=== PATIENT | male | born 1930 | race Caucasian/White ===

== ENCOUNTER 2016-11-07 07:12 | Emergency (ER) | payer MEDICARE, BC ==
--- NOTE | 2016-11-07 08:56 | EDM.PDOC ---
ED HPI GENERAL MEDICAL PROBLEM - General Chief Complaint: Gastrointestinal Problem Stated Complaint: CONSTIPATED Time Seen by Provider: 11/07/16 07:38 Source of Information: Reports: Patient, RN Notes Reviewed History Limitations: Reports: Physical Impairment (Very hard of hearing, no hearing aids) - History of Present Illness INITIAL COMMENTS - FREE TEXT/NARRATIVE: The patient states that he has been constipated for 22 days, although his last bowel movement was yesterday, after he took MiraLAX. He believes that his constipation is related to some of his medications, including his blood pressure medication and cholesterol medicine, therefore he discontinued taking them. He was prescribed Linzess (presumably for chronic idiopathic constipation ) on 10/17/2016, but states that he wants something stronger. No recent fever, nausea, vomiting, diarrhea, or problems urinating. Abdominal Pain Score (Numeric/FACES): 2 - Related Data Allergies Allergy/AdvReac Type Severity Reaction Status Date / Time No Known Allergies Allergy Verified 11/07/16 07:41 Home Meds: Home Meds Linaclotide [Linzess] 290 mcg PO DAILY 11/07/16 [History] Sertraline [Zoloft] 25 mg PO DAILY 11/07/16 [History] Past Medical History HEENT History: Reports: Impaired Vision Other HEENT History: wears eyeglasses. Cardiovascular History: Reports: High Cholesterol, Hypertension Gastrointestinal History: Reports: Chronic Constipation, Colon Polyp Genitourinary History: Reports: Prostate Disorder Musculoskeletal History: Reports: Arthritis Psychiatric History: Reports: Depression - Infectious Disease History Infectious Disease History: Reports: Chicken Pox, Shingles - Past Surgical History HEENT Surgical History: Reports: Tonsillectomy GI Surgical History: Reports: Colonoscopy, Hernia Repair/Other (x 3) Endocrine Surgical History: Reports: Thyroidectomy Social & Family History - Tobacco Use Smoking Status *Q: Never Smoker Second Hand Smoke Exposure: No - Caffeine Use Caffeine Use: Reports: None - Alcohol Use Alcohol Use History: Yes Alcohol Use Frequency: Rarely - Recreational Drug Use Recreational Drug Use: No - Living Situation & Occupation Living situation: Reports: Single, Alone Occupation: Retired ED ROS GENERAL - Review of Systems Review Of Systems: See Below Constitutional: Reports: No Symptoms HEENT: Reports: No Symptoms Respiratory: Reports: No Symptoms Cardiovascular: Reports: No Symptoms Endocrine: Reports: No Symptoms GI/Abdominal: Reports: Constipation : Reports: No Symptoms Musculoskeletal: Reports: No Symptoms Skin: Reports: No Symptoms Neurological: Reports: No Symptoms Psychiatric: Reports: No Symptoms Hematologic/Lymphatic: Reports: No Symptoms Immunologic: Reports: No Symptoms ED EXAM, GI/ABD - Physical Exam Exam: See Below Exam Limited By: No Limitations General Appearance: Alert, WD/WN, No Apparent Distress Eyes: Bilateral: Normal Appearance, EOMI Ears: Normal External Exam, Hearing Grossly Normal Nose: Normal Inspection, No Blood Throat/Mouth: Normal Inspection, Normal Lips, Normal Voice, No Airway Compromise Head: Atraumatic, Normocephalic Neck: Normal Inspection, Full Range of Motion Respiratory/Chest: No Respiratory Distress, Lungs Clear, Normal Breath Sounds, No Accessory Muscle Use Cardiovascular: Normal Peripheral Pulses, Regular Rate, Rhythm, No Gallop, No JVD, No Murmur, No Rub GI/Abdominal: Normal Bowel Sounds, Soft, Non-Tender, No Organomegaly, No Distention, No Abnormal Bruit, No Mass (Male) Exam: Deferred Back Exam: Normal Inspection, Full Range of Motion, NT Extremities: Normal Inspection, Normal Range of Motion, No Pedal Edema, Normal Capillary Refill Neurological: Alert, Oriented, No Motor/Sensory Deficits Psychiatric: Normal Affect Skin Exam: Warm, Dry, Intact, Normal Color, No Rash Lymphatic: No Adenopathy Course - Vital Signs Last Recorded V/S: Last Vital Signs Temp 36.4 C 11/07/16 07:25 Pulse 60 11/07/16 09:11 Resp 18 11/07/16 09:11 BP 133/89 11/07/16 09:11 Pulse Ox 95 11/07/16 09:11 - Radiology Interpretation Free Text/Narrative:: 2-view radiographs of the abdomen, upright, appears to demonstrate stool in the right colon, but otherwise nonspecific bowel gas pattern with no other significant stool seen. Formal read per the Radiologist pending. - Re-Assessments/Exams Free Text/Narrative Re-Assessment/Exam: 11/07/16 08:59 Communication with the patient was extremely difficult, as he is VERY hard of hearing and does not have hearing aids. Further, the patient has a number of fixed ideas, including that he does not need to take his blood pressure or prostate medicines, because supplements from a health food store are "just as good". He had difficulty understanding that his KUB did not demonstrate constipation. He was hoping that I could prescribe for him a stronger medicine than the Linzess, which I refused. I'm recommending that he follow his doctor's advice and take his medicines as prescribed. He states that he'll be following up with Dr. Cotton this coming Thursday. Departure - Departure Time of Disposition: 08:56 Disposition: Home, Self-Care 01 Condition: Good Clinical Impression: Constipation, chronic - Discharge Information Instructions: Constipation, Adult Referrals: Maryana Cotton MD [Primary Care Provider] - Forms: ED Department Discharge Additional Instructions: You were seen in the emergency room over a concern of being constipated. Workup in the ER included x-rays of your abdomen. The x-rays show that you have some stool at the beginning of your colon, but the remainder of your colon appears to be clean. You are not currently constipated. We recommend that you take all of your prescribed medicines. Stay adequately hydrated. If you develop constipation, occasional MiraLAX can be beneficial. Follow-up with your PCP, Dr. Maryana Cotton, at your previously scheduled appointment this coming 11/10/2016. If any other problems, please do not hesitate to return to the ER.
[2016-11-07 09:12] VITALS: BP 133/89
--- NOTE | 2016-11-07 10:38 | CR ---
Abdomen: Supine view of the abdomen was obtained. Comparison: Previous abdominal x-ray of 12/15/11. Bowel gas pattern appears normal. Mild vascular calcification is seen. Mild degenerative change is noted within the spine. Bony structures are osteopenic. Impression: 1. Incidental findings. Nothing acute is seen. Diagnostic code #2
== END 2016-11-07 09:15 | disposition home or self-care (01) ==
LOC: JD.ED 07:12
DX: K59.09 Other constipation (principal); I10 Essential (primary) hypertension; E78.00 Pure hypercholesterolemia, unspecified; F32.9 Major depressive disorder, single episode, unspecified; M19.90 Unspecified osteoarthritis, unspecified site; E89.0 Postprocedural hypothyroidism; Z98.890 Other specified postprocedural states; Z79.899 Other long term (current) drug therapy
CPT/HCPCS: 74000; 74000-26; 99282; 99284

== ENCOUNTER 2016-11-13 07:52 | Day surgery (SDC) | payer MEDICARE, BC ==
[~2016-11-13 07:52] MED LIST: Cefuroxime 10 MG/ML SYRINGE EYERT SCH; Lidocaine 1% PF 2 ML SDV INJECT SCH; Pilocarpine 4% Ophth Soln 15 ML Bot EYERT SCH
[2016-11-13] MEDS: Polymyxin B/Trimethoprim 10 ML Bottle EYERT SCH ×3 (09:32→11:14)
[2016-11-13] MEDS: Brimonidine 0.2% Ophth Soln 5 ML Bottle EYERT SCH ×3 (09:38→11:14)
[2016-11-13] MEDS: Phenylephrine 2.5% Ophth Soln 2 ML Bot EYERT SCH ×6 (09:46→10:58)
--- NOTE | 2016-11-13 09:47 | PCM.PREANE ---
Preanesthetic Assessment - Procedure Proposed Procedure: Right eye cataract extraction wiht IOL - Anesthesia/Transfusion/Family Hx Anesthesia History: Prior Anesthesia Without Reaction Family History of Anesthesia Reaction: No Transfusion History: No Prior Transfusion(s) Intubation History: Unknown - Review of Systems General: No Symptoms Pulmonary: No Symptoms Cardiovascular: Other (HTN controlled with medications ) Gastrointestinal: No symptoms Neurological: No Symptoms Other: Reports: Depression (controlled with medication ) - Physical Assessment NPO Status Date: 11/12/16 NPO Status Time: 21:00 Pulse: 57 O2 Sat by Pulse Oximetry: 97 Respiratory Rate: 16 Blood Pressure: 142/76 Temperature: 36.6 C Height: 1.8 m Weight: 83.915 kg ASA Class: 2 Mental Status: Alert & Oriented x3 Thyro-Mental Finger Breadths: 3 Mouth Opening Finger Breadths: 3 ROM/Head Extension: Full Lungs: Clear to auscultation, Normal respiratory effort Cardiovascular: Regular Rate, Regular Rhythm - Allergies Allergies/Adverse Reactions: Allergies Allergy/AdvReac Type Severity Reaction Status Date / Time No Known Allergies Allergy Verified 11/12/16 16:22 - Blood Blood Available: No Product(s) Available: None - Anesthesia Plan Pre-Op Medication Ordered: None - Acknowledgements Anesthesia Type Planned: MAC Pt an Appropriate Candidate for the Planned Anesthesia: Yes Alternatives and Risks of Anesthesia Discussed w Pt/Guardian: Yes Pt/Guardian Understands and Agrees with Anesthesia Plan: Yes PreAnesthesia Questionnaire HEENT History: Reports: Impaired Vision Other HEENT History: wears eyeglasses. Cardiovascular History: Reports: High Cholesterol, Hypertension Gastrointestinal History: Reports: Chronic Constipation, Colon Polyp Genitourinary History: Reports: Prostate Disorder Musculoskeletal History: Reports: Arthritis Psychiatric History: Reports: Depression Other Psychiatric History: states does not feel depressed but states "doctor thinks I am." - Infectious Disease History Infectious Disease History: Reports: Chicken Pox, Shingles - Past Surgical History HEENT Surgical History: Reports: Tonsillectomy GI Surgical History: Reports: Colonoscopy, Hernia Repair/Other (x 3) Endocrine Surgical History: Reports: Thyroidectomy - SUBSTANCE USE Smoking Status *Q: Never Smoker Second Hand Smoke Exposure: No Recreational Drug Use History: No - HOME MEDS Home Medications: Home Meds Linaclotide [Linzess] 290 mcg PO DAILY 11/07/16 [History] Sertraline [Zoloft] 25 mg PO DAILY 11/07/16 [History] - CURRENT (IN HOUSE) MEDS Current Meds: Current Medications Brimonidine Tartrate (Alphagan 0.2% Ophth Soln) 0 ml EYERT ASDIRECTED SVEN Stop: 11/13/16 18:00 Last Admin: 11/13/16 09:38 Dose: 1 drop Cefuroxime Sodium (Zinacef) 0 mg EYERT ASDIRECTED SVEN Stop: 11/13/16 18:00 Lidocaine HCl (Xylocaine-Mpf 1%) 10 ml INJECT ASDIRECTED SVEN Stop: 11/13/16 18:00 Phenylephrine HCl (Caleb-Synephrine 2.5% Ophth Soln) 0 ml EYERT ASDIRECTED SVEN Stop: 11/13/16 18:00 Pilocarpine HCl (Pilocar 4% Ophth Soln) 0 ml EYERT ASDIRECTED SVEN Stop: 11/13/16 18:00 Polymyxin/Trimethoprim Sulfate (Polytrim Ophth Soln) 0 ml EYERT ASDIRECTED SVEN Stop: 11/13/16 18:00 Last Admin: 11/13/16 09:32 Dose: 1 drop Tetracaine HCl (Tetracaine 0.5% Steri-Unit Cayla) 0 ml EYERT ASDIRECTED SVEN Stop: 11/13/16 18:00 Tropicamide (Mydriacyl 1% Ophth Soln) 0 ml EYERT ASDIRECTED SVEN Stop: 11/13/16 18:00
[2016-11-13] MEDS: Tetracaine HCl/PF 0.5% 4 ML Bottle EYERT SCH ×2 (10:47→13:50)
--- NOTE | 2016-11-13 11:18 | PCM48HPAN ---
Post Anesthesia Note - EVALUATION WITHIN 48HRS OF ANESTHETIC Vital Signs in Normal Range: Yes Patient Participated in Evaluation: Yes Respiratory Function Stable: Yes Airway Patent: Yes Cardiovascular Function Stable: Yes Hydration Status Stable: Yes Pain Control Satisfactory: Yes Nausea and Vomiting Control Satisfactory: Yes Mental Status Recovered: Yes
[2016-11-13 11:35] VITALS: BP 124/62
== END 2016-11-13 11:30 | disposition home or self-care (01) ==
LOC: JD.SDS 07:52
PROVIDERS: ATTEND Ophthalmology
PROC: 08RJ3JZ Replacement of Right Lens with Synthetic Substitute, Percutaneous Approach (ICD-10-PCS; principal; 2016-11-13)
DX: H25.811 Combined forms of age-related cataract, right eye (principal); H35.3131 Nonexudative age-related macular degeneration, bilateral, early dry stage; H16.223 Keratoconjunctivitis sicca, not specified as Sjogren's, bilateral; H16.103 Unspecified superficial keratitis, bilateral; H02.831 Dermatochalasis of right upper eyelid; H02.834 Dermatochalasis of left upper eyelid; I10 Essential (primary) hypertension; F32.9 Major depressive disorder, single episode, unspecified; M19.90 Unspecified osteoarthritis, unspecified site; Z86.010 Personal history of colon polyps; Z79.899 Other long term (current) drug therapy; Z98.890 Other specified postprocedural states
CPT/HCPCS: 66984; A9270; C1780; J0697

== ENCOUNTER 2016-12-09 07:01 | Day surgery (SDC) | payer MEDICARE, BC ==
[~2016-12-09 07:01] MED LIST changes: +Cefuroxime 10 MG/ML SYRINGE EYELF SCH; -Cefuroxime 10 MG/ML SYRINGE EYERT SCH; +Pilocarpine 4% Ophth Soln 15 ML Bot EYELF SCH; -Pilocarpine 4% Ophth Soln 15 ML Bot EYERT SCH
[2016-12-09] MEDS: Polymyxin B/Trimethoprim 10 ML Bottle EYELF SCH ×3 (07:14→08:52)
[2016-12-09] MEDS: Brimonidine 0.2% Ophth Soln 5 ML Bottle EYELF SCH ×3 (07:20→08:52)
--- NOTE | 2016-12-09 07:22 | PCM.PREANE ---
Preanesthetic Assessment - Anesthesia/Transfusion/Family Hx Anesthesia History: Prior Anesthesia Without Reaction Family History of Anesthesia Reaction: No Transfusion History: No Prior Transfusion(s) Intubation History: Unknown - Review of Systems General: No Symptoms Pulmonary: No Symptoms Cardiovascular: No Symptoms Gastrointestinal: No symptoms Neurological: No Symptoms Other: Reports: None - Physical Assessment NPO Status Date: 12/08/16 NPO Status Time: 20:00 Pulse: 53 O2 Sat by Pulse Oximetry: 95 Respiratory Rate: 16 Blood Pressure: 142/68 Temperature: 97.6 C Height: 1.8 m Weight: 83.915 kg ASA Class: 2 Mental Status: Alert & Oriented x3 Airway Class: Mallampati = 2 Dentition: Reports: Normal Dentition Thyro-Mental Finger Breadths: 3 Mouth Opening Finger Breadths: 3 ROM/Head Extension: Full Lungs: Clear to auscultation, Normal respiratory effort Cardiovascular: Regular Rate, Regular Rhythm - Allergies Allergies/Adverse Reactions: Allergies Allergy/AdvReac Type Severity Reaction Status Date / Time No Known Allergies Allergy Verified 12/08/16 16:06 - Acknowledgements Anesthesia Type Planned: MAC Pt an Appropriate Candidate for the Planned Anesthesia: Yes Alternatives and Risks of Anesthesia Discussed w Pt/Guardian: Yes Pt/Guardian Understands and Agrees with Anesthesia Plan: Yes PreAnesthesia Questionnaire HEENT History: Reports: Impaired Vision Other HEENT History: wears eyeglasses. Cardiovascular History: Reports: High Cholesterol, Hypertension Respiratory History: Reports: None Gastrointestinal History: Reports: Chronic Constipation, Colon Polyp Genitourinary History: Reports: Prostate Disorder Musculoskeletal History: Reports: Arthritis Neurological History: Reports: None Psychiatric History: Reports: Depression Other Psychiatric History: states does not feel depressed but states "doctor thinks I am." Endocrine/Metabolic History: Reports: None Hematologic History: Reports: None Immunologic History: Reports: None Oncologic (Cancer) History: Reports: None Dermatologic History: Reports: None - Infectious Disease History Infectious Disease History: Reports: Chicken Pox, Shingles - Past Surgical History Head Surgeries/Procedures: Reports: None HEENT Surgical History: Reports: Tonsillectomy Cardiovascular Surgical History: Reports: None Respiratory Surgical History: Reports: None GI Surgical History: Reports: Colonoscopy, Hernia Repair/Other (x 3) Female Surgical History: Reports: None Male Surgical History: Reports: None Endocrine Surgical History: Reports: Thyroidectomy Neurological Surgical History: Reports: None Musculoskeletal Surgical History: Reports: None Oncologic Surgical History: Reports: None Dermatological Surgical History: Reports: None - SUBSTANCE USE Smoking Status *Q: Never Smoker Second Hand Smoke Exposure: No Recreational Drug Use History: No - HOME MEDS Home Medications: Home Meds Sertraline [Zoloft] 25 mg PO DAILY 11/07/16 [History] - CURRENT (IN HOUSE) MEDS Current Meds: Current Medications Brimonidine Tartrate (Alphagan 0.2% Ophth Soln) 0 ml EYELF ASDIRECTED SVEN Stop: 12/09/16 16:00 Cefuroxime Sodium (Zinacef) 0 mg EYELF ASDIRECTED SVEN Stop: 12/09/16 18:00 Lidocaine HCl (Xylocaine-Mpf 1%) 10 ml INJECT ASDIRECTED SVEN Stop: 12/09/16 18:00 Phenylephrine HCl (Caleb-Synephrine 2.5% Ophth Soln) 0 ml EYELF ASDIRECTED SVEN Stop: 12/09/16 16:00 Pilocarpine HCl (Pilocar 4% Ophth Soln) 0 ml EYELF ASDIRECTED SVEN Stop: 12/09/16 16:00 Polymyxin/Trimethoprim Sulfate (Polytrim Ophth Soln) 0 ml EYELF ASDIRECTED SVEN Stop: 12/09/16 16:00 Last Admin: 12/09/16 07:14 Dose: 1 drop Tetracaine HCl (Tetracaine 0.5% Steri-Unit Cayla) 0 ml EYELF ASDIRECTED SVEN Stop: 12/09/16 16:00 Tropicamide (Mydriacyl 1% Ophth Soln) 0 ml EYELF ASDIRECTED SVEN Stop: 12/09/16 16:00
[2016-12-09] MEDS: Phenylephrine 2.5% Ophth Soln 2 ML Bot EYELF SCH ×5 (07:26→08:37)
[2016-12-09] MEDS: Tetracaine HCl/PF 0.5% 4 ML Bottle EYELF SCH ×2 (08:21→08:45)
[2016-12-09 09:11] VITALS: BP 126/60
== END 2016-12-09 09:00 | disposition home or self-care (01) ==
LOC: JD.SDS 07:01
PROVIDERS: ATTEND Ophthalmology
DX: H26.9 Unspecified cataract (principal); I10 Essential (primary) hypertension; Z79.899 Other long term (current) drug therapy; Z98.890 Other specified postprocedural states
CPT/HCPCS: 66984; C1780; J0697; A9270-GY

== ENCOUNTER 2017-03-03 06:16 | Day surgery (SDC) | payer MEDICARE, BC ==
[~2017-03-03 06:16] MED LIST changes: -Cefuroxime 10 MG/ML SYRINGE EYELF SCH; +Lactated Ringers 1,000 ML IV SCH; -Lidocaine 1% PF 2 ML SDV INJECT SCH; +Lidocaine 1%/Sod Bicarbonate in NS 8.4% 1 ML Syringe PRN; -Pilocarpine 4% Ophth Soln 15 ML Bot EYELF SCH; +Sodium Chloride 0.9% 10 ML Syringe FLUSH PRN
--- NOTE | 2017-03-03 07:18 | PCM.PREANE ---
Preanesthetic Assessment - Anesthesia/Transfusion/Family Hx Anesthesia History: Prior Anesthesia Without Reaction Family History of Anesthesia Reaction: No Transfusion History: No Prior Transfusion(s) Intubation History: Unknown - Review of Systems General: No Symptoms Pulmonary: No Symptoms Cardiovascular: No Symptoms Gastrointestinal: Abdominal Pain, Constipation, Hematochezia Neurological: No Symptoms Other: Reports: Depression, Anxiety - Physical Assessment NPO Status Date: 03/02/17 NPO Status Time: 19:00 O2 Sat by Pulse Oximetry: 97 Respiratory Rate: 18 Vital Signs: Last Vital Signs Temp 97.0 F 03/03/17 06:35 Pulse 62 03/03/17 06:35 Resp 18 03/03/17 06:35 BP 153/67 H 03/03/17 06:55 Pulse Ox 97 03/03/17 06:35 Height: 5 ft 7 in Weight: 88.904 kg ASA Class: 2 Mental Status: Alert & Oriented x3 Airway Class: Mallampati = 2 Dentition: Reports: Normal Dentition ROM/Head Extension: Limited/Partial Lungs: Clear to Auscultation, Normal Respiratory Effort Cardiovascular: Regular Rate, Irregular Rhythm - Allergies Allergies/Adverse Reactions: Allergies Allergy/AdvReac Type Severity Reaction Status Date / Time peanut Allergy Bronchospas Verified 03/02/17 13:08 ms - Blood Blood Available: No - Acknowledgements Anesthesia Type Planned: MAC Pt an Appropriate Candidate for the Planned Anesthesia: Yes Alternatives and Risks of Anesthesia Discussed w Pt/Guardian: Yes Pt/Guardian Understands and Agrees with Anesthesia Plan: Yes PreAnesthesia Questionnaire HEENT History: Reports: Hard of Hearing, Impaired Vision Other HEENT History: wears eyeglasses. 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 Musculoskeletal History: Reports: Arthritis Neurological History: Reports: None Psychiatric History: Reports: Depression Other Psychiatric History: states does not feel depressed but states "doctor thinks I am." Endocrine/Metabolic History: Reports: None Hematologic History: Reports: None Immunologic History: Reports: None Oncologic (Cancer) History: Reports: None Dermatologic History: Reports: None - Infectious Disease History Infectious Disease History: Reports: Chicken Pox, Shingles - Past Surgical History Head Surgeries/Procedures: Reports: None HEENT Surgical History: Reports: Cataract Surgery, Tonsillectomy Cardiovascular Surgical History: Reports: None Respiratory Surgical History: Reports: None GI Surgical History: Reports: Colonoscopy, Hernia Repair/Other Female Surgical History: Reports: None Male Surgical History: Reports: Other (See Below) Other Male Surgeries/Procedures: cystoscopy 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) Neurological Surgical History: Reports: None Musculoskeletal Surgical History: Reports: None Oncologic Surgical History: Reports: None Dermatological Surgical History: Reports: None - SUBSTANCE USE Smoking Status *Q: Never Smoker Second Hand Smoke Exposure: No Days Per Week of Alcohol Use: 0 Recreational Drug Use History: No - HOME MEDS Home Medications: Home Meds Betaine HCl [Betaine] 300 mg PO DAILY 03/02/17 [History] Boswellia Sharla Extract 1 gm MC ASDIRECTED 03/02/17 [History] Glutamine [l-Glutamine] 500 mg PO DAILY 03/02/17 [History] Lactobacillus Acidophilus [Probiotic] 1 cap PO DAILY 03/02/17 [History] Sennosides [Senokot] 2 tab PO DAILY 03/02/17 [History] Turmeric Root Extract [Turmeric] 500 mg PO DAILY 03/02/17 [History] Ubidecarenone [Coq10] 50 mg PO DAILY 03/02/17 [History] Vitamin B Complex/Folic Acid [Vitamin B-50 Complex] 1 tab PO DAILY 03/02/17 [ History] - CURRENT (IN HOUSE) MEDS Current Meds: Current Medications Lactated Ringer's (Ringers, Lactated) 1,000 mls @ 125 mls/hr IV ASDIRECTED SVEN Stop: 03/03/17 23:00 Lidocaine/Sodium Bicarbonate (Buffered Lidocaine 1% In Ns 8.4%) 0.25 ml .XX ONETIME PRN PRN Reason: Prior to IV Start Stop: 03/03/17 18:00 Sodium Chloride (Saline Flush) 10 ml FLUSH ASDIRECTED PRN PRN Reason: Keep Vein Open Stop: 03/03/17 18:00
[2017-03-03] MEDS ORDERED: Propofol 200 MG/20 ML SDV ONE (07:46)
[2017-03-03] MEDS ORDERED: Lidocaine 1% 4 ML ONE (07:46)
[2017-03-03] MEDS ORDERED: fentaNYL 100 MCG/2 ML SDV ONE (07:46)
--- NOTE | 2017-03-03 08:32 | PCM.OPNOTE ---
- General Post-Op/Procedure Note Date of Surgery/Procedure: 03/03/17 Operative Procedure(s): colonoscopy to cecum Pre Op Diagnosis: change in bowel habits Post-Op Diagnosis: Same Anesthesia Technique: MAC Primary Surgeon: Hai Lara EBL in mLs: 0 Complications: None Condition: Good
[2017-03-03 08:35] VITALS: BP 132/72
--- NOTE | 2017-03-03 14:16 | OR ---
DATE OF OPERATION: 03/03/2017 SURGEON: Hai Lara MD PREOPERATIVE DIAGNOSIS: Change in bowel habits. POSTOPERATIVE DIAGNOSIS: Change in bowel habits. OPERATION PERFORMED: Colonoscopy to cecum done under IV sedation. FINDINGS: A normal colon. There are mild internal hemorrhoids noted, but there are no angiodysplasia, neoplasias, large tumor masses, ulcerations, or diverticulum noted. DESCRIPTION OF PROCEDURE: The patient was taken to the endoscopy room, placed in a supine position, connected to monitoring equipment, given IV sedation, and placed in the left lateral position. Perianal area was inspected and was normal. Rectal exam showed good sphincter tone. A video Olympus colonoscope was then introduced into the rectum and threaded up without problem to the cecum where the ileocecal valve was noted along with the appendicular orifice. The prep was excellent. [place] cleansing score of grade A throughout the colon. The scope was slowly withdrawn, showing the cecum, ascending colon, transverse colon, descending colon, sigmoid colon, and rectum. Retroflexed view was done. The patient tolerated the procedure, sent to recovery room in a stable condition, to be followed up as needed by family doctor. ANESTHESIA: ESTIMATED BLOOD LOSS: MMODAL /[id number]
== END 2017-03-03 09:15 | disposition home or self-care (01) ==
LOC: JD.SDS 06:16
PROVIDERS: ATTEND Surgery
DX: K64.8 Other hemorrhoids (principal); K59.09 Other constipation; I10 Essential (primary) hypertension; E53.8 Deficiency of other specified B group vitamins; M17.11 Unilateral primary osteoarthritis, right knee; F41.9 Anxiety disorder, unspecified; F32.9 Major depressive disorder, single episode, unspecified; Z86.010 Personal history of colon polyps; Z98.890 Other specified postprocedural states; Z79.899 Other long term (current) drug therapy; Z91.010 Allergy to peanuts
CPT/HCPCS: 45378; J3010; J7120; 00810; J2704

== ENCOUNTER 2018-11-02 15:14 | Emergency (ER) | payer MEDICARE, BC ==
--- NOTE | 2018-11-02 17:22 | EDM.PDOC ---
ED HPI GENERAL MEDICAL PROBLEM - General Chief Complaint: Abdominal Pain Stated Complaint: CHEST OR CONSTIPATION Time Seen by Provider: 11/02/18 16:49 Source of Information: Reports: Patient, RN Notes Reviewed History Limitations: Reports: Physical Impairment (Very hard of hearing) - History of Present Illness INITIAL COMMENTS - FREE TEXT/NARRATIVE: Obtaining a history from the patient is very difficult, as the patient is not only very hard of hearing, but even when he does appear to hear questions posed to him, he seems to prefer to tell me his history of constipation, not answer the question asked. He clearly has several rigidly fixed opinions about medicine. He told me a story of someone he knew that had an upset stomach, who went to a chiropractor who asked if the patient had an upset stomach, explaining that he was able to determine that from examination of the patient's back, and that the upset stomach was relieved with repeated adjustments - the patient stated that this is proof that there is a nerve that runs down the spine and into the stomach and through the intestines, and that it is likely the pinching of this nerve that is causing his chronic constipation, if only someone could do something about it. The patient has a history of chronic constipation, status post numerous evaluations, including at [facility]. He stated that the doctors at [facility] give him some pills and charged him a lot of money. He states that the pills actually worked after about 2-3 weeks, but when they ran out, he did not get any refills. He states that he saw Dr. Taveras, who performed a number of colonoscopies and charged him a lot of money, and he saw Dr. Lara, who talked to him a lot, and charged him a lot of money. I asked the patient if he has discussed his constipation issues with his PCP, however, the patient states that he is "wasting my time" talking to her. The patient is currently on lactulose and senna. He states his last bowel movement was yesterday, but that he still feels constipated. The patient's PCP is Dr. Maryana Cotton. Left Upper Abdomen Pain Score (Numeric/FACES): 5 - Related Data Allergies Allergy/AdvReac Type Severity Reaction Status Date / Time peanut Allergy Bronchospas Verified 03/02/17 13:08 ms Home Meds: Home Meds Lactobacillus Acidophilus [Probiotic] 1 cap PO DAILY 03/02/17 [History] Sennosides [Senokot] 2 tab PO DAILY 03/02/17 [History] Dutasteride 0.5 mg PO DAILY 11/02/18 [History] Rosuvastatin Calcium 1 tab PO DAILY 11/02/18 [History] Tamsulosin [Flomax] 1 tab PO DAILY 11/02/18 [History] Past Medical History HEENT History: Reports: Hard of Hearing, Impaired Vision Other HEENT History: wears eyeglasses. Cardiovascular History: Reports: Heart Failure (diastolic dysfunction), High Cholesterol, Hypertension, Other (See Below) (Bilateral carotid artery disease) Gastrointestinal History: Reports: Colon Polyp Genitourinary History: Reports: BPH Musculoskeletal History: Reports: Arthritis Psychiatric History: Reports: Depression - Infectious Disease History Infectious Disease History: Reports: Chicken Pox, Shingles - Past Surgical History HEENT Surgical History: Reports: Cataract Surgery, Tonsillectomy GI Surgical History: Reports: Colonoscopy, Hernia Repair/Other Social & Family History - Tobacco Use Smoking Status *Q: Never Smoker - Caffeine Use Caffeine Use: Reports: None - Alcohol Use Alcohol Use History: Yes Alcohol Use Frequency: Rarely - Recreational Drug Use Recreational Drug Use: No - Living Situation & Occupation Living situation: Reports: Single, Alone Occupation: Retired ED ROS GENERAL - Review of Systems Review Of Systems: ROS reveals no pertinent complaints other than HPI. GI/Abdominal: Reports: Constipation (chronic) ED EXAM, GI/ABD - Physical Exam Exam: See Below Exam Limited By: No Limitations General Appearance: Alert, WD/WN, No Apparent Distress Eyes: Bilateral: Normal Appearance, EOMI Ears: Normal External Exam, Hearing Loss (profound) Nose: Normal Inspection Throat/Mouth: Normal Inspection, Normal Lips, Normal Voice, No Airway Compromise Head: Atraumatic, Normocephalic Neck: Normal Inspection, Full Range of Motion Respiratory/Chest: No Respiratory Distress, Lungs Clear, Normal Breath Sounds, No Accessory Muscle Use Cardiovascular: Normal Peripheral Pulses, Regular Rate, Rhythm, No Edema, No Gallop, No JVD, No Murmur, No Rub GI/Abdominal Exam: Normal Bowel Sounds, Soft, Non-Tender (benign abdominal examination), No Organomegaly, No Distention, No Abnormal Bruit, No Mass (Male) Exam: Deferred Rectal (Males) Exam: Deferred Back Exam: Normal Inspection, Full Range of Motion, NT Extremities: Normal Inspection, Normal Range of Motion, No Pedal Edema, Normal Capillary Refill Neurological: Alert, No Motor/Sensory Deficits Psychiatric: Normal Affect Skin Exam: Warm, Dry, Intact, Normal Color, No Rash Course - Vital Signs Last Recorded V/S: Last Vital Signs Temp 36.5 C 11/02/18 15:33 Pulse 64 11/02/18 19:31 Resp 16 11/02/18 19:31 BP 118/64 11/02/18 19:31 Pulse Ox 95 11/02/18 19:31 - Orders/Labs/Meds Orders: Active Orders 24 hr Category Date Time Status KUB [Abdomen 1V Flat] [CR] Stat Exams 11/02/18 17:19 Taken Labs: Laboratory Tests 11/02/18 Range/Units 17:50 Urine Color Yellow (Yellow) Urine Appearance Cloudy H (Clear) Urine pH 5.5 (5.0-8.0) Ur Specific [place] 1.025 (1.005-1.030) Urine Protein 1+ H (Negative) Urine Glucose (UA) Negative (Negative) Urine Ketones 1+ H (Negative) Urine Occult Blood Negative (Negative) Urine Nitrite Negative (Negative) Urine Bilirubin Negative (Negative) Urine Urobilinogen 0.2 (0.2-1.0) Ur Leukocyte Esterase Negative (Negative) Urine RBC Not seen (0-5) /hpf Urine WBC 0-5 (0-5) /hpf Ur Squamous Epith Cells 0-5 (0-5) /hpf Amorphous Sediment Many H (NOT SEEN) /hpf Urine Bacteria Rare (FEW) /hpf Urine Mucus Not seen (FEW) /hpf - Re-Assessments/Exams Free Text/Narrative Re-Assessment/Exam: 11/02/18 17:20 Unfortunately, I am not going to be able to cure the patient's chronic constipation issue, but I can check to see if he has significant constipation today, as he states that he had a bowel movement yesterday. I have ordered a KUB. If he appears to have a large amount of constipation, we will treat him with enemas. 11/02/18 17:49 KUB appears to demonstrate a nonspecific bowel gas pattern, with no significant quantity of stool seen. Incidentally noted is significant degenerative changes to the spine, with mild scoliosis. Formal read per the Radiologist pending. 11/02/18 18:18 I explained to the patient the KUB findings, that while he may feel like he has constipation, he is not actually constipated. The patient had some difficulty understanding that. He wondered if a problem with his urinary system might be responsible for his symptoms, although he denies dysuria. The patient has somewhat peculiar notions of anatomy, of how various nerves travel through various bones and intestines and organs. Nevertheless, I ordered a urinalysis by clean catch. 11/02/18 19:43 The patient's urinalysis returned negative. I will discharge him home. He stated that he plans to follow-up with Dr. Perez. Departure - Departure Time of Disposition: 19:43 Disposition: Home, Self-Care 01 Condition: Good Clinical Impression: Perceived constipation - Discharge Information *PRESCRIPTION DRUG MONITORING PROGRAM REVIEWED*: Not Applicable *COPY OF PRESCRIPTION DRUG MONITORING REPORT IN PATIENT GRACE: Not Applicable Referrals: Maryana Cotton MD [Primary Care Provider] - Forms: ED Department Discharge Additional Instructions: You were seen in the emergency room for the sensation of constipation. Workup in the ER included an x-ray of your entire abdomen, and a urinalysis. The x-ray did not show any significant amount of stool anywhere in your intestines, and your urinalysis was unremarkable. While you may feel like you are constipated, in fact, you are not. We recommend that you continue to take the lactulose and senna that you are currently taking. Follow-up with your PCP as needed. If any other problems, please do not hesitate to return to the ER. - My Orders Last 24 Hours: My Active Orders 11/02/18 17:19 KUB [Abdomen 1V Flat] [CR] Stat - Assessment/Plan Last 24 Hours: My Active Orders 11/02/18 17:19 KUB [Abdomen 1V Flat] [CR] Stat
[2018-11-02 19:32] VITALS: BP 118/64
--- NOTE | 2018-11-03 06:55 | CR ---
Abdomen: Supine view of the abdomen was obtained. Comparison: Prior abdominal of x-ray 11/07/16. Scattered gas within small bowel and colon is seen which appears within normal limits. Vascular calcification is noted. Bony structures are osteopenic. Joint space narrowing is seen within the right hip. Mild degenerative change is scattered within the spine. Impression: 1. Incidental findings. Nothing acute is seen on supine abdominal x-ray. Diagnostic code #2
== END 2018-11-02 20:00 | disposition home or self-care (01) ==
LOC: JD.ED 15:14
DX: K59.09 Other constipation (principal); I50.9 Heart failure, unspecified; E78.00 Pure hypercholesterolemia, unspecified; F32.9 Major depressive disorder, single episode, unspecified; Z91.010 Allergy to peanuts; Z79.899 Other long term (current) drug therapy
CPT/HCPCS: 74018; 74018-26; 81001; 99282; 99284-25

== ENCOUNTER 2019-08-12 07:53 | Emergency (ER) | payer MEDICARE, BC ==
[2019-08-12] MEDS ORDERED: Lidocaine 2% Jelly 10 ML Urojet MUCMEM ONE (08:57)
--- NOTE | 2019-08-12 10:11 | EDM.PDOC ---
ED HPI GENERAL MEDICAL PROBLEM - General Chief Complaint: General Stated Complaint: UNABLE TO URINATE AND NO BOWEL MOVEMENT IN 7 DAYS Time Seen by Provider: 08/12/19 08:27 Source of Information: Reports: Patient History Limitations: Reports: No Limitations - History of Present Illness INITIAL COMMENTS - FREE TEXT/NARRATIVE: The patient presents because he cannot urinate. He had surgery on his lower lip earlier in the week and he had a catheter in. They took it out and he could not urinate so they put one back in. He had it taken out yesterday. Today he had trouble going so he did a self cath with an old catheter he had. He had about 350mls when he arrived today. He said this has happened to him before. He also has been constipated for a few days. He has no pain now. Onset: Gradual Duration: Day(s): Improves with: Reports: None Worsens with: Reports: None Associated Symptoms: Reports: No Other Symptoms - Related Data Allergies Allergy/AdvReac Type Severity Reaction Status Date / Time peanut Allergy Bronchospas Verified 08/12/19 08:33 ms Home Meds: Home Meds Lactobacillus Acidophilus [Probiotic] 1 cap PO DAILY 03/02/17 [History] Sennosides [Senokot] 2 tab PO DAILY 03/02/17 [History] Dutasteride 0.5 mg PO DAILY 11/02/18 [History] Rosuvastatin Calcium 1 tab PO DAILY 11/02/18 [History] Tamsulosin [Flomax] 1 tab PO DAILY 11/02/18 [History] Past Medical History HEENT History: Reports: Hard of Hearing, Impaired Vision Other HEENT History: wears eyeglasses. Cardiovascular History: Reports: Heart Failure, High Cholesterol, Hypertension, Other (See Below) Other Cardiovascular History: diastolic dysfunction, bilateral carotid artery disease Respiratory History: Reports: None Gastrointestinal History: Reports: Colon Polyp Genitourinary History: Reports: BPH [employer] CONSULTANT History: Reports: None Musculoskeletal History: Reports: Arthritis Neurological History: Reports: None Psychiatric History: Reports: Depression Other Psychiatric History: states does not feel depressed but states "doctor thinks I am." Endocrine/Metabolic History: Reports: None Hematologic History: Reports: None Immunologic History: Reports: None Oncologic (Cancer) History: Reports: None Dermatologic History: Reports: None - Infectious Disease History Infectious Disease History: Reports: Chicken Pox, Shingles - Past Surgical History Head Surgeries/Procedures: Reports: None HEENT Surgical History: Reports: Cataract Surgery, Tonsillectomy Respiratory Surgical History: Reports: None GI Surgical History: Reports: Colonoscopy, Hernia Repair/Other Endocrine Surgical History: Reports: Other (See Below) Neurological Surgical History: Reports: None Oncologic Surgical History: Reports: None Dermatological Surgical History: Reports: None Social & Family History - Tobacco Use Smoking Status *Q: Never Smoker - Caffeine Use Caffeine Use: Reports: None - Living Situation & Occupation Living situation: Reports: Single, Alone Occupation: Retired ED ROS GENERAL - Review of Systems Review Of Systems: See Below Constitutional: Reports: No Symptoms HEENT: Reports: No Symptoms Respiratory: Reports: No Symptoms Cardiovascular: Reports: No Symptoms Endocrine: Reports: No Symptoms GI/Abdominal: Reports: Abdominal Pain (None now). Denies: Nausea, Vomiting : Reports: Urinary Retention ED EXAM, GENERAL - Physical Exam Exam: See Below Exam Limited By: No Limitations General Appearance: Alert, No Apparent Distress Ears: Normal External Exam Nose: Normal Inspection Head: Atraumatic, Normocephalic Neck: Normal Inspection Respiratory/Chest: No Respiratory Distress, Lungs Clear, Normal Breath Sounds Cardiovascular: Regular Rate, Rhythm, No Edema, No Murmur GI/Abdominal: Soft, Non-Tender, No Organomegaly, No Mass Back Exam: Normal Inspection Extremities: Normal Inspection Course - Vital Signs Last Recorded V/S: Last Vital Signs Temp 98.2 F 08/12/19 08:29 Pulse 76 08/12/19 08:29 Resp 16 08/12/19 08:29 BP 162/80 H 08/12/19 08:29 Pulse Ox 96 08/12/19 08:29 - Orders/Labs/Meds Orders: Active Orders 24 hr Category Date Time Status Alvarado Catheter Insertion [Insert Urinary Catheter] [OM. Care 08/12/19 09:00 Ordered PC] Q24H Urinary Catheter Assessment [RC] ASDIRECTED Care 08/12/19 08:56 Active Labs: Laboratory Tests 08/12/19 Range/Units 09:15 Urine Color Yellow (Yellow) Urine Appearance Clear (Clear) Urine pH 7.0 (5.0-8.0) Ur Specific [place] 1.025 (1.005-1.030) Urine Protein 1+ H (Negative) Urine Glucose (UA) Negative (Negative) Urine Ketones Negative (Negative) Urine Occult Blood 2+ H (Negative) Urine Nitrite Negative (Negative) Urine Bilirubin Negative (Negative) Urine Urobilinogen 1.0 (0.2-1.0) Ur Leukocyte Esterase Negative (Negative) U Hyaline Cast (Auto) 0-5 (0-5) /lpf Urine RBC 10-20 H (0-5) /hpf Urine WBC 0-5 (0-5) /hpf Ur Squamous Epith Cells 0-5 (0-5) /hpf Urine Bacteria Moderate H (FEW) /hpf Urine Mucus Rare (FEW) /hpf Meds: Medications Discontinued Medications Generic Name Dose Route Start Last Admin Trade Name Freq PRN Reason Stop Dose Admin Lidocaine HCl 10 ml 08/12/19 08:57 08/12/19 09:10 Xylocaine 2% Jelly MUCMEM 08/12/19 08:58 10 ml ONETIME ONE Administration - Re-Assessments/Exams Free Text/Narrative Re-Assessment/Exam: 08/12/19 10:08 I did an US and it appears he had about 350mls. I am concerned he will not go when he goes home. I had a alvarado inserted again. His UA shows no UTI. I will discharge him home. Departure - Departure Time of Disposition: 10:15 Disposition: Home, Self-Care 01 Condition: Good Clinical Impression: Urinary retention - Discharge Information *PRESCRIPTION DRUG MONITORING PROGRAM REVIEWED*: Not Applicable *COPY OF PRESCRIPTION DRUG MONITORING REPORT IN PATIENT GRACE: Not Applicable Referrals: Maryana Cotton MD [Primary Care Provider] - 1 Week Additional Instructions: Follow up with Dr Cotton within a week. Keep taking the exlax that you are taking and if that does not help you could try miralax or magnesium citrate. Please return if you are worse. Sepsis Event Note - Evaluation Sepsis Screening Result: No Definite Risk - Focused Exam Vital Signs: Vital Signs Temp Pulse Resp BP Pulse Ox 08/12/19 08:29 98.2 F 76 16 162/80 H 96 Date Exam was Performed: 08/12/19 Time Exam was Performed: 10:05 - My Orders Last 24 Hours: My Active Orders 08/12/19 08:56 Urinary Catheter Assessment [RC] ASDIRECTED 08/12/19 09:00 Alvarado Catheter Insertion [Insert Urinary Catheter] [OM.PC] Q24H - Assessment/Plan Last 24 Hours: My Active Orders 08/12/19 08:56 Urinary Catheter Assessment [RC] ASDIRECTED 08/12/19 09:00 Alvarado Catheter Insertion [Insert Urinary Catheter] [OM.PC] Q24H
[2019-08-12 10:39] VITALS: BP 130/68; PULSE 86
== END 2019-08-12 10:49 | disposition home or self-care (01) ==
LOC: JD.ED 07:53
DX: R33.9 Retention of urine, unspecified (principal); Z91.010 Allergy to peanuts
CPT/HCPCS: 51702; 81001; 99283; 99284-25

== ENCOUNTER 2021-02-09 14:44 | Emergency (ER) | payer MEDICARE, BC ==
[2021-02-09 15:01] VITALS: BP 154/101; PULSE 79
--- NOTE | 2021-02-09 15:09 | EDM.PDOC ---
ED HPI GENERAL MEDICAL PROBLEM - General Chief Complaint: Chest Pain Stated Complaint: CHEST PAIN Time Seen by Provider: 02/09/21 15:00 - History of Present Illness INITIAL COMMENTS - FREE TEXT/NARRATIVE: 89-year-old male presents the emergency room not feeling right. For about the past 3 days the patient's had a little bit of chest tightness that he thought was due to sinus congestion. Patient has a history of some left-мария ed sinus discomfort. This is aggravated by the electric heat in the room that he sleeps in. He goes into other rooms and does not have this problem. Apparently this is been going on for 3 days or so. The other thing family has noticed is has been little shakier than normal. He is not aware of any fevers or chills. He is not aware of any sick contacts. He is not had any other symptoms no gastrointestinal symptoms. It is uncertain if he has had the Covid vaccine but it is believed he has not. - Related Data Allergies Allergy/AdvReac Type Severity Reaction Status Date / Time peanut Allergy Bronchospas Verified 02/09/21 15:01 ms Home Meds: Home Meds Lactobacillus Acidophilus [Probiotic] 1 cap PO DAILY 03/02/17 [History] Sennosides [Senokot] 2 tab PO DAILY 03/02/17 [History] Dutasteride 0.5 mg PO DAILY 11/02/18 [History] Rosuvastatin Calcium 1 tab PO DAILY 11/02/18 [History] Tamsulosin [Flomax] 1 tab PO DAILY 11/02/18 [History] Past Medical History HEENT History: Reports: Hard of Hearing, Impaired Vision Other HEENT History: wears eyeglasses. Cardiovascular History: Reports: Heart Failure, High Cholesterol, Hypertension, Other (See Below) Other Cardiovascular History: diastolic dysfunction, bilateral carotid artery disease Respiratory History: Reports: None Gastrointestinal History: Reports: Colon Polyp Genitourinary History: Reports: BPH DESKTOP PUBLISHING ASSOCIATE History: Reports: None Musculoskeletal History: Reports: Arthritis Neurological History: Reports: None Psychiatric History: Reports: Depression Other Psychiatric History: states does not feel depressed but states "doctor thinks I am." Endocrine/Metabolic History: Reports: None Hematologic History: Reports: None Immunologic History: Reports: None Oncologic (Cancer) History: Reports: None Dermatologic History: Reports: None - Infectious Disease History Infectious Disease History: Reports: Chicken Pox, Shingles - Past Surgical History Head Surgeries/Procedures: Reports: None HEENT Surgical History: Reports: Cataract Surgery, Tonsillectomy Respiratory Surgical History: Reports: None GI Surgical History: Reports: Colonoscopy, Hernia Repair/Other Endocrine Surgical History: Reports: Other (See Below) Neurological Surgical History: Reports: None Oncologic Surgical History: Reports: None Dermatological Surgical History: Reports: None Social & Family History - Caffeine Use Caffeine Use: Reports: None - Living Situation & Occupation Living situation: Reports: Single, Alone Occupation: Retired ED ROS GENERAL - Review of Systems Review Of Systems: See Below Constitutional: Reports: No Symptoms HEENT: Reports: Rhinitis, Sinus Problem Respiratory: Denies: Shortness of Breath, Cough, Sputum Cardiovascular: Reports: Chest Pain (A little bit of substernal discomfort when his sinuses are acting up.) Endocrine: Reports: No Symptoms GI/Abdominal: Reports: No Symptoms : Reports: No Symptoms Neurological: Reports: No Symptoms ED EXAM, GENERAL - Physical Exam Exam: See Below Exam Limited By: Other (He is very hard of hearing his niece is able to communicate pretty well with him and is very helpful at this time.) General Appearance: Alert, No Apparent Distress Eye Exam: Bilateral Eye: Normal Inspection Ears: Normal External Exam, Normal Canal, Hearing Grossly Normal, Normal TMs, Other (Significant cerumen noted in the left canal but this does not completely obstruct the exam) Nose: Normal Inspection, Normal Mucosa, No Blood, Other (Left-sided maxillary sinus tenderness with percussion) Throat/Mouth: Normal Inspection, Normal Lips, Normal Teeth, Normal Gums, Normal Oropharynx, Normal Voice, No Airway Compromise Head: Atraumatic, Normocephalic Neck: Normal Inspection, Supple, Non-Tender, Full Range of Motion. No: Lymphadenopathy (L), Lymphadenopathy (R) Respiratory/Chest: No Respiratory Distress, Lungs Clear, Normal Breath Sounds Cardiovascular: Regular Rate, Rhythm, No Edema, No Murmur GI/Abdominal: Normal Bowel Sounds, Soft, Non-Tender #1 Interpretation EKG Date: 02/09/21 Rhythm: NSR Rate (Beats/Min): 77 [place]: LAD-Left [place] Deviation P-Wave: Present QRS: Other (Suspicious for a left anterior fascicular block) ST-T: Normal QT: Normal Comparison: NA - No Prior EKG EKG Interpretation Comments: Abnormal EKG Course - Vital Signs Last Recorded V/S: Last Vital Signs Temp 36.6 C 02/09/21 14:58 Pulse 79 02/09/21 14:58 Resp 31 H 02/09/21 14:58 BP 154/101 H 02/09/21 14:58 Pulse Ox 94 L 02/09/21 14:58 - Orders/Labs/Meds Orders: Active Orders 24 hr Category Date Time Status Chest 1V Frontal [CR] Stat Exams 02/09/21 15:09 Taken UA RFX DANNIELLE AND CULT IF INDIC [URIN] Stat Lab 02/09/21 15:10 Ordered Labs: Laboratory Tests 02/09/21 02/09/21 02/09/21 Range/Units 15:10 15:31 15:31 WBC 3.86 L (4.23-9.07) K/mm3 RBC 3.95 L (4.63-6.08) M/mm3 Hgb 13.2 L (13.7-17.5) gm/dl Hct 38.9 L (40.1-51.0) % MCV 98.5 H (79.0-92.2) fl MCH 33.4 H (25.7-32.2) pg MCHC 33.9 (32.2-35.5) g/dl RDW Std Deviation 47.3 H (35.1-43.9) fL Plt Count 139 L (163-337) K/mm3 MPV 10.6 (9.4-12.3) fl Neut % (Auto) 69.1 H (34.0-67.9) % Lymph % (Auto) 24.4 (21.8-53.1) % [place] % (Auto) 6.5 (5.3-12.2) % Eos % (Auto) 0 L (0.8-7.0) Baso % (Auto) 0.0 L (0.1-1.2) % Neut # (Auto) 2.67 (1.78-5.38) K/mm3 Lymph # (Auto) 0.94 L (1.32-3.57) K/mm3 [place] # (Auto) 0.25 L (0.30-0.82) K/mm3 Eos # (Auto) 0.00 L (0.04-0.54) K/mm3 Baso # (Auto) 0.00 L (0.01-0.08) K/mm3 D-Dimer, Quantitative (0.19-0.50) mg/L Sodium 137 (136-145) mEq/L Potassium 4.2 (3.5-5.1) mEq/L Chloride 103 (98-107) mEq/L Carbon Dioxide 25 (21-32) mEq/L Anion Gap 13.2 (5-15) BUN 25 H (7-18) mg/dL Creatinine 1.2 (0.7-1.3) mg/dL Est Cr Clr Drug Dosing TNP Estimated GFR (MDRD) 57 (>60) mL/min BUN/Creatinine Ratio 20.8 H (14-18) Glucose 116 H (70-99) mg/dL Calcium 8.1 L (8.5-10.1) mg/dL Ferritin (26-388) ng/ml Total Bilirubin 0.7 (0.2-1.0) mg/dL AST 28 (15-37) U/L ALT 17 (16-63) U/L Alkaline Phosphatase 59 (46-116) U/L Lactate Dehydrogenase 219 (85-227) U/L Troponin I 0.017 (0.00-0.056) ng/mL C-Reactive Protein 5.8 H* (<1.0) mg/dL Total Protein 7.2 (6.4-8.2) g/dl Albumin 2.9 L (3.4-5.0) g/dl Globulin 4.3 gm/dL Albumin/Globulin Ratio 0.7 L (1-2) SARS-CoV-2 RNA (GREY) Positive H (NEGATIVE) 02/09/21 02/09/21 Range/Units 15:31 15:31 WBC (4.23-9.07) K/mm3 RBC (4.63-6.08) M/mm3 Hgb (13.7-17.5) gm/dl Hct (40.1-51.0) % MCV (79.0-92.2) fl MCH (25.7-32.2) pg MCHC (32.2-35.5) g/dl RDW Std Deviation (35.1-43.9) fL Plt Count (163-337) K/mm3 MPV (9.4-12.3) fl Neut % (Auto) (34.0-67.9) % Lymph % (Auto) (21.8-53.1) % [place] % (Auto) (5.3-12.2) % Eos % (Auto) (0.8-7.0) Baso % (Auto) (0.1-1.2) % Neut # (Auto) (1.78-5.38) K/mm3 Lymph # (Auto) (1.32-3.57) K/mm3 [place] # (Auto) (0.30-0.82) K/mm3 Eos # (Auto) (0.04-0.54) K/mm3 Baso # (Auto) (0.01-0.08) K/mm3 D-Dimer, Quantitative 0.44 (0.19-0.50) mg/L Sodium (136-145) mEq/L Potassium (3.5-5.1) mEq/L Chloride (98-107) mEq/L Carbon Dioxide (21-32) mEq/L Anion Gap (5-15) BUN (7-18) mg/dL Creatinine (0.7-1.3) mg/dL Est Cr Clr Drug Dosing Estimated GFR (MDRD) (>60) mL/min BUN/Creatinine Ratio (14-18) Glucose (70-99) mg/dL Calcium (8.5-10.1) mg/dL Ferritin 697 H (26-388) ng/ml Total Bilirubin (0.2-1.0) mg/dL AST (15-37) U/L ALT (16-63) U/L Alkaline Phosphatase (46-116) U/L Lactate Dehydrogenase (85-227) U/L Troponin I (0.00-0.056) ng/mL C-Reactive Protein (<1.0) mg/dL Total Protein (6.4-8.2) g/dl Albumin (3.4-5.0) g/dl Globulin gm/dL Albumin/Globulin Ratio (1-2) SARS-CoV-2 RNA (GREY) (NEGATIVE) - Re-Assessments/Exams Free Text/Narrative Re-Assessment/Exam: 02/09/21 18:31 Chest x-ray suggestive of Covid type pneumonia. Poor inspiration Covid test is positive. C-reactive protein is 5.4 troponin normal below detectable limits D- dimer 0.44. Departure - Departure Time of Disposition: 18:32 Disposition: Home, Self-Care 01 Clinical Impression: Pneumonia due to COVID-19 virus Instructions: COVID-19 Referrals: Maryana Cotton MD [Primary Care Provider] - Forms: ED Department Discharge Additional Instructions: Return to the emergency room with any questions problems or worsening symptoms. Tomorrow at [facility] pickers material handlers a pulse oximeter, this measures the oxygen and your blood at [facility]. Check a couple of times a day if below 90% return immediately to the emergency room. Tylenol as needed for discomfort. Get plenty of rest. Sepsis Event Note (ED) - Focused Exam Vital Signs: Vital Signs Temp Pulse Resp BP Pulse Ox 02/09/21 14:58 36.6 C 79 31 H 154/101 H 94 L - My Orders Last 24 Hours: My Active Orders 02/09/21 15:09 Chest 1V Frontal [CR] Stat 02/09/21 15:10 UA RFX DANNIELLE AND CULT IF INDIC [URIN] Stat - Assessment/Plan Last 24 Hours: My Active Orders 02/09/21 15:09 Chest 1V Frontal [CR] Stat 02/09/21 15:10 UA RFX DANNIELLE AND CULT IF INDIC [URIN] Stat
--- NOTE | 2021-02-10 16:47 | CR ---
Chest: Frontal view of the chest was obtained. Comparison: No prior chest imaging is available. Heart is enlarged. Patchy increased density is seen within both upper and lower lungs. Hiatal hernia is noted. Upper mediastinum is within normal limits. Bony structures show nothing acute. Impression: 1. Mild patchy areas of increased density within both upper lungs and lower lungs. Please correlate if patient has any COVID symptoms. Findings otherwise represent non-COVID multifocal pneumonia. 2. Cardiomegaly. 3. Hiatal hernia. Diagnostic code #3
== END 2021-02-09 18:47 | disposition home or self-care (01) ==
LOC: JD.ED 14:44
DX: U07.1 COVID-19 (principal); J12.82 Pneumonia due to coronavirus disease 2019; I11.0 Hypertensive heart disease with heart failure; I50.30 Unspecified diastolic (congestive) heart failure; E78.00 Pure hypercholesterolemia, unspecified; Z79.899 Other long term (current) drug therapy; Z91.010 Allergy to peanuts
CPT/HCPCS: 36415; 71045; 80053; 82728; 83615; 84484; 85025; 85379; 86140; 93005; 99285; U0002; 93010; 99283

== ENCOUNTER 2021-03-02 11:11 | Emergency (ER) | payer MEDICARE, BC ==
--- NOTE | 2021-03-02 12:01 | EDM.PDOC ---
ED HPI GENERAL MEDICAL PROBLEM - General Chief Complaint: General Stated Complaint: COVID + Time Seen by Provider: 03/02/21 11:40 Source of Information: Reports: Patient History Limitations: Reports: Other (hearing impaired) - History of Present Illness INITIAL COMMENTS - FREE TEXT/NARRATIVE: Patient is an 89-year-old male presenting to the emergency room with nephew. 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 History is almost entirely provided by nephew. Nephew sees the patient every day. The patient does live home alone but has a nephew who visits once in the morning and there is a friend that visits him once every evening. Apparently, the patient did test positive for Covid in February 09. Since his infection, he is been extremely more fatigued and less active. He was never hospitalized. Today, he said he needed to go to the hospital to be evaluated. Patient states he did not feel well but denied any additional symptoms. He denied any sort of pain. According to nephew, he appears to be at his baseline. Patient does talk about constipation and how he had that treated in the past but is unclear whether he is constipated currently. No interventions performed prior to arrival. The nephew was inquiring about having patient go to a nursing facility, which he was informed would not be a possibility from the emergency room and list patient had to be admitted to the hospital. - Related Data Allergies Allergy/AdvReac Type Severity Reaction Status Date / Time peanut Allergy Bronchospas Verified 02/09/21 15:01 ms Home Meds: Home Meds Lactobacillus Acidophilus [Probiotic] 1 cap PO DAILY 03/02/17 [History] Sennosides [Senokot] 2 tab PO DAILY 03/02/17 [History] Dutasteride 0.5 mg PO DAILY 11/02/18 [History] Rosuvastatin Calcium 1 tab PO DAILY 11/02/18 [History] Tamsulosin [Flomax] 1 tab PO DAILY 11/02/18 [History] Past Medical History HEENT History: Reports: Hard of Hearing, Impaired Vision Other HEENT History: wears eyeglasses. Cardiovascular History: Reports: Heart Failure, High Cholesterol, Hypertension, Other (See Below) Other Cardiovascular History: diastolic dysfunction, bilateral carotid artery disease Respiratory History: Reports: None Gastrointestinal History: Reports: Colon Polyp Genitourinary History: Reports: BPH COMPUTER SYSTEMS AUDITOR History: Reports: None Musculoskeletal History: Reports: Arthritis Neurological History: Reports: None Psychiatric History: Reports: Depression Other Psychiatric History: states does not feel depressed but states "doctor thinks I am." Endocrine/Metabolic History: Reports: None Hematologic History: Reports: None Immunologic History: Reports: None Oncologic (Cancer) History: Reports: None Dermatologic History: Reports: None - Infectious Disease History Infectious Disease History: Reports: Chicken Pox, Novel Coronavirus, Shingles - Past Surgical History Head Surgeries/Procedures: Reports: None HEENT Surgical History: Reports: Cataract Surgery, Tonsillectomy Cardiovascular Surgical History: Reports: None Respiratory Surgical History: Reports: None GI Surgical History: Reports: Colonoscopy, Hernia Repair/Other Male Surgical History: Reports: Other (See Below) Other Male Surgeries/Procedures: cystoscopy Endocrine Surgical History: Reports: Other (See Below) Neurological Surgical History: Reports: None Musculoskeletal Surgical History: Reports: None Oncologic Surgical History: Reports: None Dermatological Surgical History: Reports: None Social & Family History - Tobacco Use Tobacco Use Status *Q: Never Tobacco User - Caffeine Use Caffeine Use: Reports: None - Recreational Drug Use Recreational Drug Use: No - Living Situation & Occupation Living situation: Reports: Single, Alone Occupation: Retired ED ROS GENERAL - Review of Systems Review Of Systems: Unable To Obtain Reason Not Obtained: Hearing loss ED EXAM, GENERAL - Physical Exam Exam: See Below Free Text/Narrative:: I have reviewed the triage vital signs Const: Well nourished, well developed, appears stated age Eyes: Pupils Equal and reactive to light bilaterally, no conjunctival injection HENT: No signs of trauma or swelling, Neck supple without meningismus CV: Regular Rate Rhythm, Warm, well-perfused extremities RESP: Unlabored respiratory effort GI: soft, non-tender, non-distended, no masses MSK: No gross deformities appreciated Skin: Warm, dry. No rashes Neuro: Alert, medical esthetician II-XII grossly intact. Sensation and motor function of extremities grossly intact. Psych: Appropriate mood and affect. Course - Vital Signs Last Recorded V/S: Last Vital Signs Temp 36.6 C 03/02/21 11:50 Pulse 60 03/02/21 13:30 Resp 18 03/02/21 13:30 BP 145/72 H 03/02/21 13:30 Pulse Ox 93 L 03/02/21 13:30 - Orders/Labs/Meds Labs: Laboratory Tests 03/02/21 03/02/21 03/02/21 Range/Units 12:15 12:27 12:27 WBC 5.66 (4.23-9.07) K/mm3 RBC 3.39 L (4.63-6.08) M/mm3 Hgb 11.1 L D (13.7-17.5) gm/dl Hct 33.7 L (40.1-51.0) % MCV 99.4 H (79.0-92.2) fl MCH 32.7 H (25.7-32.2) pg MCHC 32.9 (32.2-35.5) g/dl RDW Std Deviation 49.5 H (35.1-43.9) fL Plt Count 253 D (163-337) K/mm3 MPV 9.9 (9.4-12.3) fl Neut % (Auto) 68.9 H (34.0-67.9) % Lymph % (Auto) 21.2 L (21.8-53.1) % [place] % (Auto) 9.0 (5.3-12.2) % Eos % (Auto) 0.5 L (0.8-7.0) Baso % (Auto) 0.2 (0.1-1.2) % Neut # (Auto) 3.90 (1.78-5.38) K/mm3 Lymph # (Auto) 1.20 L (1.32-3.57) K/mm3 [place] # (Auto) 0.51 (0.30-0.82) K/mm3 Eos # (Auto) 0.03 L (0.04-0.54) K/mm3 Baso # (Auto) 0.01 (0.01-0.08) K/mm3 Sodium 142 (136-145) mEq/L Potassium 3.8 (3.5-5.1) mEq/L Chloride 108 H (98-107) mEq/L Carbon Dioxide 24 (21-32) mEq/L Anion Gap 13.8 (5-15) BUN 16 (7-18) mg/dL Creatinine 1.1 (0.7-1.3) mg/dL Est Cr Clr Drug Dosing 44.91 mL/min Estimated GFR (MDRD) > 60 (>60) mL/min BUN/Creatinine Ratio 14.5 (14-18) Glucose 104 H (70-99) mg/dL Calcium 8.1 L (8.5-10.1) mg/dL Total Bilirubin 0.6 (0.2-1.0) mg/dL AST 20 (15-37) U/L ALT 25 (16-63) U/L Alkaline Phosphatase 61 (46-116) U/L Total Protein 6.6 (6.4-8.2) g/dl Albumin 2.2 L (3.4-5.0) g/dl Globulin 4.4 gm/dL Albumin/Globulin Ratio 0.5 L (1-2) Urine Color Yellow (Yellow) Urine Appearance Clear (Clear) Urine pH 7.0 (5.0-8.0) Ur Specific [place] 1.020 (1.005-1.030) Urine Protein 2+ H (Negative) Urine Glucose (UA) Negative (Negative) Urine Ketones 1+ H (Negative) Urine Occult Blood Negative (Negative) Urine Nitrite Negative (Negative) Urine Bilirubin 1+ H (Negative) Urine Urobilinogen 2.0 H (0.2-1.0) Ur Leukocyte Esterase Negative (Negative) Urine RBC Not seen (0-5) /hpf Urine WBC 0-5 (0-5) /hpf Ur Squamous Epith Cells 0-5 (0-5) /hpf Urine Bacteria Rare (FEW) /hpf Urine Mucus Moderate H (FEW) /hpf Departure - Departure Time of Disposition: 12:00 Disposition: Home, Self-Care 01 Clinical Impression: Weakness - Discharge Information Instructions: 10 Things You Can Do to Manage Your COVID-19 Symptoms at Home - [facility] (12/07/2020) Referrals: Maryana Cotton MD [Primary Care Provider] - Forms: ED Department Discharge Sepsis Event Note (ED) - Focused Exam Vital Signs: Vital Signs Temp Pulse Resp BP Pulse Ox 03/02/21 13:30 60 18 145/72 H 93 L 03/02/21 11:50 36.6 C 70 20 198/165 H 99 - Assessment/Plan Assessment:: Patient is 89-year-old male presented to emergency room with a chief complaint of not feeling well. History extremely difficult and limited due to patient's hearing loss. Clinically, patient appears well,\\. All signs are within normal limits except for some mild hypertension. Exam is largely unremarkable and unrevealing. Broad differential diagnosis exists but again is somewhat limited by history. Basic labs performed which did not demonstrate any significant evidence of renal failure, severe anemia, leukocytosis, electrolyte abnormality, hepatic failure. At this point, the patient's nephew feels comfortable taking patient home and following up with primary care for further evaluation. No i ndication for further testing at this time. Patient does not appear to be confused and has safe discharge planning. All questions were addressed and answered.
[2021-03-02 13:40] VITALS: BP 145/72; PULSE 60
== END 2021-03-02 13:45 | disposition home or self-care (01) ==
LOC: JD.ED 11:11
DX: R53.1 Weakness (principal); I11.0 Hypertensive heart disease with heart failure; I50.9 Heart failure, unspecified; E78.00 Pure hypercholesterolemia, unspecified; Z91.010 Allergy to peanuts; Z79.899 Other long term (current) drug therapy
CPT/HCPCS: 36415; 80053; 81001; 85025; 99284